=== PATIENT | female | born 1990 | race Hispanic/Latino ===

== ENCOUNTER 2017-04-28 04:26 | Emergency (ER) | payer SELFPAY ==
[2017-04-28] MEDS ORDERED: IBUPROFEN 600 MG TABLET ONE (05:17)
[2017-04-28] MEDS ORDERED: TETANUS/DIPHTHERIA TOXOID [ADULT] 0.5 ML VIAL IM ONE (07:12)
[2017-04-28] MEDS ORDERED: AMPICILLIN SODIUM/SULBACTAM NA 1.5GM VIAL ONE (07:35)
[2017-04-28] MEDS ORDERED: SODIUM CHLORIDE 0.9% 100 ML IV ONE (07:36)
== END 2017-04-28 09:56 | disposition home or self-care (01) ==
LOC: EDH 04:26
DX: S61.451A Open bite of right hand, initial encounter (principal); W54.0XXA Bitten by dog, initial encounter; Y93.89 Activity, other specified; Y92.89 Other specified places as the place of occurrence of the external cause; Y99.8 Other external cause status
CPT/HCPCS: 73130; 90471; 90714; 96365; 99284; J0295

== ENCOUNTER 2017-05-08 16:05 | Emergency (ER) | payer SELFPAY ==
[2017-05-08] MEDS ORDERED: CEFTRIAXONE SODIUM 1 GM ONE (16:39)
[2017-05-08] MEDS ORDERED: LIDOCAINE HCL-MPF 1% 2ML VIAL ONE (16:39)
== END 2017-05-08 16:57 | disposition home or self-care (01) ==
LOC: EDH 16:05
DX: L03.316 Cellulitis of umbilicus (principal); B95.62 Methicillin resistant Staphylococcus aureus infection as the cause of diseases classified elsewhere; Z72.0 Tobacco use
CPT/HCPCS: 81025; 96372; 99283; J0696; J3490

== ENCOUNTER 2020-05-01 08:12 | Observation (INO) | payer SELFPAY ==
[~2020-05-01] VITALS: Ht 160 cm; Wt 74.8 kg
[2020-05-01] MEDS ORDERED: IOHEXOL 350 MG/ML 100ML INFUS..BTL IV ONE (08:34)
[2020-05-01 08:49] LABS: BASOPHILS % (AUTO) 0.1 % (0.0-5.0); EOSINOPHILS % (AUTO) 0.3 % (0.0-8.0); HEMATOCRIT 42.9 % (36-48); LYMPHOCYTES % (AUTO) 25.8 % (21.0-51.0); MEAN CORPUSCULAR HEMOGLOBIN 28.6 pg (27.0-33.0); MEAN CORPUSCULAR HGB CONC 32.9 g/dL (32.0-36.0); MONOCYTES % (AUTO) 5.7 % (3.0-13.0); NEUTROPHILS % (AUTO) 67.6 % (40.0-77.0); PLATELET COUNT (AUTO) 337 K/uL (130-400); RED BLOOD CELL COUNT(AUTO) 4.93 MIL/uL (4.00-5.50); RED CELL DISTRIBUTION WIDTH 12.3 % (11.0-15.5); WHITE BLOOD COUNT (AUTO) 14.5 K/uL (4.8-10.8)
[2020-05-01 09:00] LABS: CREATININE 0.8 mg/dL (0.5-1.5); INR 0.98 (0.85-1.15); POTASSIUM 3.7 mmol/L (3.5-5.1); PROTHROMBIN TIME 10.7 SEC (9.6-11.6)
[2020-05-01 09:04] LABS: ALBUMIN 4.4 g/dL (3.5-5.0); BILIRUBIN,TOTAL 0.4 mg/dL (0.2-1.0); TOTAL PROTEIN, SERUM 8.4 g/dL (6.0-8.3)
[2020-05-01 09:39] LABS: APPEARANCE,URINE Clear (CLEAR); BILIRUBIN,URINE Negative (NEGATIVE); COLOR,URINE Yellow (YELLOW); GLUCOSE, URINE (UA) Negative (NEGATIVE); KETONES,URINE Negative (NEGATIVE); LEUKOCYTE ESTERASE ,URINE Negative (NEGATIVE); NITRATE,URINE Negative (NEGATIVE); OCCULT BLOOD,URINE Trace (NEGATIVE); PROTEIN,URINE Negative (NEGATIVE); UROBILINOGEN,URINE 0.2 mg/dL (0.2-1.0)
[2020-05-01 09:47] LABS: AMPHET/METH SCREEN,URINE NEGATIVE (NEGATIVE); BARBITURATE SCREEN, URINE NEGATIVE (NEGATIVE); BENZODIAZEPINES SCREEN,URINE NEGATIVE (NEGATIVE); CANNABINOID SCREEN,URINE POSITIVE (NEGATIVE); COCAINE SCREEN,URINE NEGATIVE (NEGATIVE); OPIATE SCREEN,URINE NEGATIVE (NEGATIVE); PHENCYCLIDINE SCREEN,URINE NEGATIVE (NEGATIVE)
[2020-05-01 09:58] LABS: BACTERIA,URINE None Seen /HPF (None Seen); RBC,URINE 0-1 /HPF (0-1); TRICHOMONAS,URINE None Seen /LPF (None Seen); WBC,URINE None Seen /HPF (0-1)
[2020-05-01] MEDS ORDERED: THIAMINE HCL 100 MG TABLET PO SCH (12:45)
[2020-05-01] MEDS ORDERED: CEFTRIAXONE SODIUM 1 GM IVP SCH (12:45)
[2020-05-01] MEDS: LACTATED RINGERS 1000ML 1,000 ML IV SCH (12:45)
[2020-05-01] MEDS ORDERED: FOLIC ACID 5 MG/ML 10 ML VIAL IV SCH (12:45)
[2020-05-01] MEDS: FOLIC ACID 5 MG/ML 10 ML VIAL IV SCH (13:00)
[2020-05-01] MEDS: THIAMINE HCL 100 MG/ML 2ML VIAL IVP SCH (13:00)
[2020-05-01] MEDS ORDERED: MORPHINE SULFATE 2 MG/ML 1ML SYG ONE (13:29)
[2020-05-01] MEDS ORDERED: LACTATED RINGERS 1000ML 1,000 ML IV ONE (13:29)
[2020-05-01] MEDS ORDERED: CEFTRIAXONE SODIUM 1 GM ONE (13:29)
[2020-05-01] MEDS ORDERED: ACETAMINOPHEN-CODEINE 300/30MG TAB PO PRN (15:30)
[2020-05-01 16:00] VITALS: BP 116/59
[2020-05-01] MEDS ORDERED: GABA300S PO (18:03)
[2020-05-01 19:24] VITALS: BP 115/57
[2020-05-01] MEDS: MORPHINE SULFATE 2 MG/ML 1ML SYG IVP PRN (20:04)
[2020-05-01] MEDS: NEOMY SULF/BACITRAC ZN/POLY OINT 30GM TUBE TP SCH (21:00)
[2020-05-01 23:54] VITALS: BP 101/52
[2020-05-02] MEDS: LACTATED RINGERS 1000ML 1,000 ML IV SCH ×3 (01:19→20:00)
[2020-05-02 03:16] VITALS: BP 102/59
[2020-05-02 05:44] LABS: BASOPHILS % (AUTO) 0.2 % (0.0-5.0); EOSINOPHILS % (AUTO) 0.2 % (0.0-8.0); HEMATOCRIT 39.5 % (36-48); LYMPHOCYTES % (AUTO) 14.3 % (21.0-51.0); MEAN CORPUSCULAR HEMOGLOBIN 29.7 pg (27.0-33.0); MEAN CORPUSCULAR HGB CONC 34.4 g/dL (32.0-36.0); MEAN CORPUSCULAR VOLUME 86.2 fL (79-99); MONOCYTES % (AUTO) 7.7 % (3.0-13.0); NEUTROPHILS % (AUTO) 77.1 % (40.0-77.0); PLATELET COUNT (AUTO) 288 K/uL (130-400); RED BLOOD CELL COUNT(AUTO) 4.58 MIL/uL (4.00-5.50); WHITE BLOOD COUNT (AUTO) 19.4 K/uL (4.8-10.8)
[2020-05-02] MEDS: MORPHINE SULFATE 2 MG/ML 1ML SYG IVP PRN ×3 (06:11→20:03)
[2020-05-02 06:24] LABS: ALANINE AMINOTRANSFERASE 24 U/L (12-78); ALBUMIN 3.4 g/dL (3.5-5.0); ASPARTATE AMINOTRANSFERASE 25 U/L (10-37); BILIRUBIN,TOTAL 2.2 mg/dL (0.2-1.0); CARBON DIOXIDE 24 mmol/L (21-32); CHLORIDE 101 mmol/L (101-111); CREATININE 0.7 mg/dL (0.5-1.5); GLOMERULAR FILTR. RATE CALC 104 mL/min (>60); GLUCOSE,RANDOM 95 mg/dL (70-105); SODIUM SERUM 133 mmol/L (136-145); TOTAL PROTEIN, SERUM 7.2 g/dL (6.0-8.3); UREA NITROGEN, BLOOD 11 mg/dL (7-18)
[2020-05-02 06:26] LABS: ALCOHOL, BLOOD < 3 mg/dL (0-10)
[2020-05-02] MEDS ORDERED: ACETAMINOPHEN 325 MG TAB PO PRN (07:45)
[2020-05-02 08:39] VITALS: BP 98/53
[2020-05-02] MEDS: FOLIC ACID 5 MG/ML 10 ML VIAL IV SCH (09:00)
[2020-05-02] MEDS: THIAMINE HCL 100 MG/ML 2ML VIAL IVP SCH (09:49)
[2020-05-02] MEDS: CEFTRIAXONE SODIUM 1 GM IVP SCH ×2 (09:50→19:59)
[2020-05-02] MEDS: NEOMY SULF/BACITRAC ZN/POLY OINT 30GM TUBE TP SCH ×4 (09:52→20:00)
[2020-05-02 13:19] VITALS: BP 117/81
[2020-05-02 17:53] VITALS: BP 136/79
[2020-05-02] MEDS: GABAPENTIN 300 MG CAPSULE PO SCH (20:00)
[2020-05-02 20:49] VITALS: BP 118/80
[2020-05-02 23:44] VITALS: BP 121/82
[2020-05-03 04:29] VITALS: BP 99/56
[2020-05-03] MEDS: MORPHINE SULFATE 2 MG/ML 1ML SYG IVP PRN (04:43)
[2020-05-03 05:14] LABS: BASOPHILS % (AUTO) 0.2 % (0.0-5.0); HEMATOCRIT 40.2 % (36-48); LYMPHOCYTES % (AUTO) 24.8 % (21.0-51.0); MEAN CORPUSCULAR HEMOGLOBIN 29.6 pg (27.0-33.0); MEAN CORPUSCULAR HGB CONC 33.8 g/dL (32.0-36.0); MEAN CORPUSCULAR VOLUME 87.4 fL (79-99); MONOCYTES % (AUTO) 10.4 % (3.0-13.0); NEUTROPHILS % (AUTO) 63.1 % (40.0-77.0); PLATELET COUNT (AUTO) 285 K/uL (130-400); WHITE BLOOD COUNT (AUTO) 11.3 K/uL (4.8-10.8)
[2020-05-03 05:19] LABS: ALBUMIN 3.4 g/dL (3.5-5.0); BILIRUBIN,TOTAL 0.9 mg/dL (0.2-1.0); CREATININE 0.7 mg/dL (0.5-1.5); POTASSIUM 3.6 mmol/L (3.5-5.1); TOTAL PROTEIN, SERUM 7.3 g/dL (6.0-8.3)
[2020-05-03] MEDS: HYDROCODONE/ACETAMINOPHEN 5/325 MG TAB PO PRN ×2 (06:12→16:19)
[2020-05-03 08:00] VITALS: BP 91/51
[2020-05-03] MEDS: THIAMINE HCL 100 MG/ML 2ML VIAL IVP SCH (09:49)
[2020-05-03] MEDS: CEFTRIAXONE SODIUM 1 GM IVP SCH (09:49)
[2020-05-03] MEDS: FOLIC ACID 5 MG/ML 10 ML VIAL IV SCH (09:50)
[2020-05-03] MEDS: GABAPENTIN 300 MG CAPSULE PO SCH (09:50)
[2020-05-03] MEDS: NEOMY SULF/BACITRAC ZN/POLY OINT 30GM TUBE TP SCH ×3 (09:56→17:53)
[2020-05-03] MEDS ORDERED: TRIP30O TP (09:57)
[2020-05-03] MEDS ORDERED: CEPH500T PO (09:57)
[2020-05-03] MEDS ORDERED: MECO10005 PO (09:57)
[2020-05-03 12:00] VITALS: BP 85/49
[2020-05-03] MEDS ORDERED: FOLI0.4T6 PO (12:00)
[2020-05-03 16:00] VITALS: BP 112/73
== END 2020-05-03 18:30 | disposition home or self-care (01) ==
LOC: EDH 08:12 → EDHIP 08:13 → 4BH 16:50
PROVIDERS: ADMIT Internal Medicine; ATTEND Internal Medicine
DX: S01.01XA Laceration without foreign body of scalp, initial encounter (principal); R21 Rash and other nonspecific skin eruption; F31.9 Bipolar disorder, unspecified; F43.0 Acute stress reaction; F43.10 Post-traumatic stress disorder, unspecified; D72.829 Elevated white blood cell count, unspecified; F10.129 Alcohol abuse with intoxication, unspecified; F17.210 Nicotine dependence, cigarettes, uncomplicated; Z79.899 Other long term (current) drug therapy; V49.50XA Passenger injured in collision with unspecified motor vehicles in traffic accident, initial encounter; Y93.89 Activity, other specified; Y92.410 Unspecified street and highway as the place of occurrence of the external cause
CPT/HCPCS: 12002; 36415 ×3; 70450 ×2; 71260; 72125; 74177; 80053 ×3; 80305; 81001; 82550 ×2; 84484; 85025 ×3; 85610; 85730; 86850; 86900; 86901; 93005; 96361 ×2; 96374; 96375; 96376 ×2; 99285; G0378 ×52; J0696 ×4; J3411 ×2; J3490 ×3; J7120 ×3; Q9967

== ENCOUNTER 2020-05-09 18:50 | Emergency (ER) | payer OTHER ==
[~2020-05-09 18:50] MED LIST: CEPH500T PO; FOLI0.4T6 PO; GABA300S PO; MECO10005 PO; TRIP30O TP
== END 2020-05-09 19:41 | disposition home or self-care (01) ==
LOC: EDH 18:50
DX: S01.01XD Laceration without foreign body of scalp, subsequent encounter (principal); F31.9 Bipolar disorder, unspecified; Z72.0 Tobacco use; X58.XXXD Exposure to other specified factors, subsequent encounter
CPT/HCPCS: 99281

== ENCOUNTER 2021-03-27 15:25 | Emergency (ER) | payer OTHER ==
[~2021-03-27] VITALS: Ht 160 cm; Wt 81.6 kg
[2021-03-27] MEDS ORDERED: NIRM1TAB PO (17:05)
[2021-03-27] MEDS ORDERED: D-ME1POW16 PO (17:05)
[2021-03-27 17:11] VITALS: BP 109/75
== END 2021-03-27 17:23 | disposition home or self-care (01) ==
LOC: EDH 15:25
DX: U07.1 COVID-19 (principal); J06.9 Acute upper respiratory infection, unspecified
CPT/HCPCS: 87426; 87804